=== PATIENT | male | born 1950 | race Caucasian/White ===

== ENCOUNTER 2020-04-21 14:45 | Inpatient (IN) | payer MEDICARE, BC ==
[~2020-04-21] VITALS: Ht 172.7 cm; Wt 59.9 kg
[2020-04-21] MEDS ORDERED: IV NORMAL SALINE 1000 ML BAG IV ONE (15:00)
--- NOTE | 2020-04-21 15:00 | NUR ---
Patient BIB [facility] from home for c/o near syncope . Patient is A/Ox3, no distress noted.
[2020-04-21 15:24] LABS: HEMATOCRIT 27.8 % (36.7-47.1); HEMOGLOBIN 8.9 g/dL (12.5-16.3); MEAN CORPUSCULAR HGB CONC 32 g/dL (32.5-36.3)
[2020-04-21 15:25] LABS: LYMPHOCYTES # (AUTO) 0.9 K/uL (20.0-40.0); MONOCYTES # (AUTO) 0.5 K/uL (2.0-10.0); NEUTROPHILS # (AUTO) 6.6 K/uL (1.8-8.9)
[2020-04-21 15:29] LABS: BASOPHILS % (AUTO) 0.3 % (0.0-2.0); EOSINOPHILS % (AUTO) 0.2 % (0.0-7.0); LYMPHOCYTES % (AUTO) 11.2 % (20.5-51.5); MEAN CORPUSCULAR HEMOGLOBIN 27.6 uug (23.8-33.4); MEAN CORPUSCULAR VOLUME 86.3 fL (73.0-96.2); MONOCYTES % (AUTO) 6.2 % (0.0-11.0); NEUTROPHILS % (AUTO) 82.1 % (38.5-71.5); PLATELET COUNT (AUTO) 114 K/uL (152-348); RED BLOOD CELL COUNT(AUTO) 3.23 MIL/uL (4.06-5.63)
[2020-04-21 15:34] LABS: POTASSIUM 3.2 mmol/L (3.5-5.1)
[2020-04-21 15:47] LABS: BILIRUBIN,DIRECT 0.4 mg/dL (0.0-0.2); BILIRUBIN,TOTAL 0.6 mg/dL (0.2-1.0); TOTAL PROTEIN, SERUM 5.1 g/dL (6.4-8.2)
[2020-04-21] MEDS ORDERED: PROC-11 PO (16:00)
[2020-04-21] MEDS ORDERED: ONDA4TAB11 SL (16:00)
[2020-04-21] MEDS ORDERED: CIPR-262 PO (16:00)
[2020-04-21] MEDS ORDERED: METR-147 PO (16:00)
[2020-04-21] MEDS ORDERED: OXYC10TA49 PO (16:00)
[2020-04-21] MEDS ORDERED: GABA-532 PO (16:00)
[2020-04-21] MEDS ORDERED: FINA5TAB11 PO (16:00)
--- NOTE | 2020-04-21 17:20 | NUR ---
DR Garrett into eval patient.
[2020-04-21] MEDS ORDERED: HYDROCODONE/APAP 5-325MG TABLET PO PRN (17:30)
[2020-04-21] MEDS ORDERED: ACETAMINOPHEN 325 MG TABLET PO PRN (17:30)
[2020-04-21] MEDS ORDERED: Z GUARD REMEDY PASTE 57 GM TUBE TOP PRN (17:30)
[2020-04-21] MEDS ORDERED: MAGNESIUM HYDROXIDE 30 ML LIQUID UDC PO PRN (17:30)
[2020-04-21] MEDS ORDERED: ONDANSETRON 4 MG/2 ML VIAL IV PRN (17:30)
[2020-04-21 17:52] LABS: HEMATOCRIT 26.4 % (36.7-47.1); HEMOGLOBIN 8.3 g/dL (12.5-16.3)
--- NOTE | 2020-04-21 19:00 | NUR ---
Received hand off report from Víctor Ayers RN for continuity of care. Patient has been seen by inpatient, pending bed placement as there are no available beds at this time. Will continue to monitor patient and wait until bed is available.
--- NOTE | 2020-04-21 21:03 | NUR ---
Report given to BERTIN Cardenas
--- NOTE | 2020-04-21 21:37 | NUR ---
Patient transported to TELE in stable condition.
--- NOTE | 2020-04-21 21:45 | NUR ---
Pt arrived from ER via gurney in stable condition. Placed on tele monitor. No s/s of respiratory distress. Denies pain at this time. Assessment completed. Will continue to monitor.
[2020-04-21 22:12] VITALS: BP 103/60
[2020-04-21 23:57] VITALS: BP 95/55
[2020-04-22 04:43] VITALS: BP 103/62
[2020-04-22] MEDS ORDERED: PANTOPRAZOLE SODIUM 40 MG TABLET.DR PO SCH (07:00)
[2020-04-22 07:01] LABS: BASOPHILS % (AUTO) 0.4 % (0.0-2.0); EOSINOPHILS % (AUTO) 0.2 % (0.0-7.0); HEMOGLOBIN 9.1 g/dL (12.5-16.3); LYMPHOCYTES # (AUTO) 1.2 K/uL (20.0-40.0); MEAN CORPUSCULAR HGB CONC 32 g/dL (32.5-36.3); MEAN CORPUSCULAR VOLUME 86.7 fL (73.0-96.2); MONOCYTES # (AUTO) 0.5 K/uL (2.0-10.0); MONOCYTES % (AUTO) 5.1 % (0.0-11.0); NEUTROPHILS # (AUTO) 7.4 K/uL (1.8-8.9); NEUTROPHILS % (AUTO) 81.3 % (38.5-71.5); PLATELET COUNT (AUTO) 104 K/uL (152-348); RED BLOOD CELL COUNT(AUTO) 3.23 MIL/uL (4.06-5.63)
[2020-04-22 07:04] LABS: CREATININE 0.9 mg/dL (0.6-1.3); MAGNESIUM 1.9 mg/dL (1.8-2.4); PHOSPHOROUS 2.5 mg/dL (2.5-4.9); POTASSIUM 3.8 mmol/L (3.5-5.1)
[2020-04-22 07:15] LABS: THYROID STIMULATING HORMONE 1.851 mIU/mL (0.358-3.740)
--- NOTE | 2020-04-22 09:50 | NUR ---
Pt awake, alert and in bed. Denies any pain or discomfort at this time. Pt is on RA with no s/s of respiratory distress. Will continue to monitor.
[2020-04-22 11:33] VITALS: BP 102/61
--- NOTE | 2020-04-22 14:34 | NUR ---
Pt resting in bed. On RA with no s/s of SOB or chest pain. No acute distress noted at this time. Denies pain. Will endorse to oncoming shift.
[2020-04-22 15:31] VITALS: BP_SYST 102; BP_SYST 105; BP_DIAS 61
--- NOTE | 2020-04-22 17:00 | NUR ---
Prepared for discharge. Anxious to go home.
--- NOTE | 2020-04-22 17:40 | NUR ---
Discharged via w/c, accompanied by Eunice RAMIREZ to neighbor in auto. No c/o discomfort.
== END 2020-04-22 17:35 | disposition home health service (06) | DRG 71 ==
LOC: ER 14:45 → TELE3 21:20
PROVIDERS: ADMIT Student in an Organized Health Care Education/Training Program; ATTEND Student in an Organized Health Care Education/Training Program
DX: G93.40 Encephalopathy, unspecified (principal); E87.1 Hypo-osmolality and hyponatremia; C78.7 Secondary malignant neoplasm of liver and intrahepatic bile duct; C78.01 Secondary malignant neoplasm of right lung; C18.9 Malignant neoplasm of colon, unspecified; C78.02 Secondary malignant neoplasm of left lung; R55 Syncope and collapse; D69.6 Thrombocytopenia, unspecified; D64.9 Anemia, unspecified; K80.20 Calculus of gallbladder without cholecystitis without obstruction; N40.0 Benign prostatic hyperplasia without lower urinary tract symptoms; E87.6 Hypokalemia; I67.2 Cerebral atherosclerosis; G93.0 Cerebral cysts; E27.9 Disorder of adrenal gland, unspecified; N28.1 Cyst of kidney, acquired; R16.1 Splenomegaly, not elsewhere classified; Z93.2 Ileostomy status; W19.XXXA Unspecified fall, initial encounter; Y93.9 Activity, unspecified; Y92.89 Other specified places as the place of occurrence of the external cause
CPT/HCPCS: 36415; 70030-TC; 70450; 71045; 83605; 83735; 84100; 84443; 85018; 85025; 85730; 87040; 93005; A4663; G0378